=== PATIENT | male | born 1970 | race Caucasian/White ===

== ENCOUNTER → 2020-06-08 | Outpatient (CLI) | payer OTHER ==
--- NOTE | 2020-06-08 16:29 | RAD ---
AP and Lateral Views of the Chest 06/08/2020 3:10 PM Indication: Reason: COUGH, SOA, COVID SYMPTOMS / Spl. Instructions: / History: Comparison: Chest radiograph August 11, 2015 Findings: There is no focal consolidation or infiltrate identified. The cardiomediastinal silhouette is within normal limits. There is no evidence of pneumothorax or pleural effusion. No acute osseous a bnormalities are identified. Impression: No evidence of acute cardiopulmonary process. Electronically signed by: Maicol Salcido MD (06/08/2020 4:27 PM) [id number]
== END ==
LOC: DXRAD 15:03
PROVIDERS: ATTEND Family Medicine
DX: J06.9 Acute upper respiratory infection, unspecified (principal)
CPT/HCPCS: 71046